=== PATIENT | male | born 1955 | race Caucasian/White ===

== ENCOUNTER → 2018-02-12 | Outpatient (CLI) | payer BC ==
[~2018-02-12] MED LIST: [UNRECOGNIZED DRUG - REMARK]
== END ==
LOC: M.MRI 17:00
DX: R51 Headache (principal)

== ENCOUNTER → 2018-02-26 | Outpatient (CLI) | payer BC ==
[2018-02-26 16:38] LABS: CREATININE 1.1 mg/dL (0.6-1.3)
== END ==
LOC: M.LAB 16:21 → M.MRI 17:30 → M.LAB 02-27 16:30 → M.MRI 02-27 17:30
DX: R90.82 White matter disease, unspecified (principal); R51 Headache

== ENCOUNTER → 2019-03-10 | Day surgery (SDC) | payer BC ==
[~2019-03-10] MED LIST changes: +BENICAR20 MG PO; +FLOMAX0.4 MG PO; +NORCO 5-325 TA1 EAC1 PO; +OMEPRAZOLE40 MG PO
[2019-03-10 06:46] LABS: HEMATOCRIT 41.4 % (42.0-52.0); HEMOGLOBIN 14.6 gm/dL (14.0-18.0); MCH 30.4 pg (26.0-34.0); MCHC 35.2 g/dL (28.0-37.0); MCV 86.4 fL (80.0-100.0); MPV 8.1 fl. (7.2-11.1); RBC 4.79 mil/uL (4.50-6.00); RDW-CV 12.8 % (10.5-14.5); WBC 4.9 thou/uL (4.0-11.0)
[2019-03-10 07:08] LABS: CALCIUM 9.1 mg/dL (8.5-10.1); CREATININE 0.9 mg/dL (0.6-1.3)
[2019-03-10 07:12] LABS: ALBUMIN 3.7 g/dL (3.4-5.0); TOTAL BILIRUBIN 0.9 mg/dL (<0.1-1.0); TOTAL PROTEIN 6.3 g/dL (6.4-8.2)
--- NOTE | 2019-03-10 09:35 | EKG ---
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
--- NOTE | 2019-03-26 08:52 | OP ---
[facility] [address] [place] [address] OPERATIVE REPORT Name: WISAM PAGE Room: [facility]#: [id number] Admission: 03/10/19 Attend Phys: Steve Matthew Discharge: Date of : 59 Report #: [id number] THIS REPORT FOR: //name// CC: Steve Matthew Felix Burton DATE OF SERVICE: 03/10/2019 PREOPERATIVE DIAGNOSIS: Right inguinal hernia. POSTOPERATIVE DIAGNOSIS: Bilateral inguinal hernias. OPERATION: Laparoscopic repair of bilateral inguinal hernias with mesh. SURGEON: Steve Matthew MD ANESTHESIA: General. ESTIMATED BLOOD LOSS: Minimal. SPECIMEN: None. DESCRIPTION OF PROCEDURE: After informed consent was obtained, the patient was brought to the operating room and placed supine. SCDs were placed and working, preoperative antibiotics were administered, general anesthesia was induced. Pete catheter was placed. Abdomen was prepped and draped in the usual sterile fashion. A 10 mm incision was made above the umbilicus. Fascia was incised and a trocar was placed. Pneumoperitoneum was established. A right and left lower quadrant 5 mm trocars were placed under direct vision. The right ASIS was scored with the cautery. The peritoneum was then incised and reflected inferiorly. This allowed visualization of the cord structures. It allowed visualization of the pubic bone. I was able to dissect away an indirect hernia sac. This was fully reduced bluntly. I then placed a medium Bard 3DMax mesh. It was tacked to Richie's ligament with 2 absorbable tacks. The peritoneum was then reapproximated with the tacker as well. Attention was then directed to the left side. He did have a small hernia. Therefore, the left ASIS was scored. The peritoneum was then incised and reflected inferiorly. Again, identified the cord structures, the iliac vessels, [place] [address] OPERATIVE REPORT Name: WISAM PAGE Room: [facility].#: [id number] Admission: 03/10/19 Attend Phys: Steve Matthew Discharge: Date of : 59 Report #: [id number] A small indirect hernia sac was reduced. A Bard 3DMax, median, mesh was inserted. It was tacked to Richie's ligament with 2 absorbable tacks. The peritoneum was again reapproximated with the tacker as well. The ports were then removed under direct vision. The fascia was then closed with a [id number]-hurpi 0 Vicryl. Skin was closed with 4-0 Monocryl. Incisions were sealed with Dermabond. COMPLICATIONS: None. DISPOSITION: The patient was taken to recovery in satisfactory condition. <ELECTRONICALLY SIGNED> By: Steve Matthew MD 03/26/19 0852 [id number] [id number] flaca Ta
== END | disposition home or self-care (01) ==
LOC: M.SUR 06:01
PROVIDERS: Surgery
DX: K40.20 Bilateral inguinal hernia, without obstruction or gangrene, not specified as recurrent (principal); Z98.890 Other specified postprocedural states; Z79.899 Other long term (current) drug therapy

== ENCOUNTER 2021-07-22 18:24 | Emergency (ER) | payer BC ==
[~2021-07-22] VITALS: Ht 175.3 cm; Wt 79.4 kg
[2021-07-22] MEDS ORDERED: CRESTOR10 MG PO (18:38)
[2021-07-22] MEDS ORDERED: VALSARTAN160 MG PO (18:38)
[2021-07-22] MEDS ORDERED: ERYTHROMYCIN E3.5 G3 OPHTHALMIC ×2 (19:52→20:12)
[2021-07-22 20:18] VITALS: BP 147/98
== END 2021-07-22 20:18 | disposition home or self-care (01) ==
LOC: M.ERS 18:24
DX: S05.01XA Injury of conjunctiva and corneal abrasion without foreign body, right eye, initial encounter (principal); I10 Essential (primary) hypertension; Z79.899 Other long term (current) drug therapy; X58.XXXA Exposure to other specified factors, initial encounter; Y93.89 Activity, other specified; Y92.89 Other specified places as the place of occurrence of the external cause; Y99.8 Other external cause status